=== PATIENT | female | born 1960 | race American Indian/Alaskan Native ===

== ENCOUNTER 2016-11-01 08:46 | Emergency (ER) | payer BC ==
[2016-11-01 08:46] VITALS: BMI 24.5
[2016-11-01 09:12] VITALS: TEMP 98.6; O2SAT 100
--- NOTE | 2016-11-01 09:30 | ED PDOC ---
Arrival/HPI - General Time Seen by Provider: 11/01/16 09:12 Historian: Patient - History of Present Illness Narrative History of Present Illness (Text): 11/01/16 09:23 56yo female with PMHx of hypertension, Diabetes, Anemia, present with 2days history of generalized weakness. states she has been yawning constantly. she reports that her FS was 78yesterday. In ED it was 128 this morning. +Nausea. Denies chest pain, SOB, abdominal pain, vomiting, diarrhea, dizziness, urinary symptoms, any other complaint at this time. Past Medical History - Provider Review Nursing Documentation Reviewed: Yes - Cardiac Hx Angina: Yes Hx Hypertension: Yes - Endocrine/Metabolic Hx Diabetes Mellitus Type 2: Yes (On Metformin, advised by Dr. Kelsey to stop ) - Hematological/Oncological Other/Comment: THALLASEMIA [facility]OR - Surgical History Hx Hysterectomy: Yes (2003) Hx Tonsillectomy: Yes (1993) - Anesthesia Hx Anesthesia: Yes Hx Anesthesia Reactions: No Hx Malignant Hyperthermia: No Family/Social History - Physician Review Nursing Documentation Reviewed: Yes Family/Social History: Unknown Family HX Smoking Status: Never Smoked Allergies/Home Meds Allergies/Adverse Reactions: Allergies tomato Allergy (Uncoded 11/01/16 09:19) RASH Home Medications: Home Meds Medication Instructions Recorded Confirmed Olmesartan/Amlodipin/Hcthiazid 1 tab PO DAILY 11/01/16 11/01/16 [Tribenzor 20-5-12.5 mg Tablet] Review of Systems - Physician Review All systems were reviewed & negative as marked: Yes - Review of Systems Constitutional: Fatigue Eyes: Normal ENT: Normal Respiratory: Normal Cardiovascular: Normal Gastrointestinal: Normal Genitourinary Female: Normal Musculoskeletal: Normal Skin: Normal Neurological: Normal Endocrine: Normal Hemo/Lymphatic: Normal Psychiatric: Normal Physical Exam Vital Signs Reviewed: Yes Vital Signs Temp Pulse Resp BP Pulse Ox 11/01/16 11:00 63 16 126/78 100 11/01/16 09:11 98.6 F 70 16 137/84 100 Temperature: Afebrile Blood Pressure: Normal Pulse: Regular Respiratory Rate: Normal Appearance: Positive for: Well-Appearing, Non-Toxic, Comfortable Pain Distress: None Mental Status: Positive for: Alert and Oriented X 3 Finger Stick Blood Glucose: 126 - Systems Exam Head: Present: Atraumatic, Normocephalic Pupils: Present: PERRL Extroacular Muscles: Present: EOMI Conjunctiva: Present: Normal Mouth: Present: Moist Mucous Membranes Neck: Present: Normal Range of Motion Respiratory/Chest: Present: Clear to Auscultation, Good Air Exchange. No: Respiratory Distress, Accessory Muscle Use Cardiovascular: Present: Regular Rate and Rhythm, Normal S1, S2. No: Murmurs Abdomen: Present: Normal Bowel Sounds. No: Tenderness, Distention, Peritoneal Signs, Rebound, Guarding, McBurney's Point Tender, Rovsing's Sign Present Back: Present: Normal Inspection Upper Extremity: Present: Normal Inspection. No: Cyanosis, Edema Lower Extremity: Present: Normal Inspection. No: Edema Neurological: Present: GCS=15, CN II-XII Intact, Speech Normal Skin: Present: Warm, Dry, Normal Color. No: Rashes Psychiatric: Present: Alert, Oriented x 3, Normal Insight, Normal Concentration Medical Decision Making ED Course and Treatment: 11/01/16 12:09 Pt presented for stated history. she was hemodynamically stable and comfortable in ED. Lab was reviewed and pt had hypokalemia which was repleted in ED. She have UTI and was treated with macrobid. She is currently not on hypoglycemics. She stopped taking it, on her PMD's request. All result was DW the pt. She was advised to f/u with her PMD. TRT ED for any new or worsening symptoms. - Lab Interpretations Lab Results: 11/01/16 09:37 11/01/16 09:37 Lab Results 11/01/16 10:50: Urine Color Yellow, Urine Appearance Clear, Urine pH 7.0, Ur Specific [place] 1.015, Urine Protein Negative, Urine Glucose (UA) Negative, Urine Ketones Negative, Urine Blood Moderate H, Urine Nitrate Negative, Urine Bilirubin Negative, Urine Urobilinogen 0.2, Ur Leukocyte Esterase Small H, Urine RBC 5 - 10, Urine WBC 1 - 3, Ur Epithelial Cells 4 - 5, Urine Bacteria Few 11/01/16 09:37: Iron 93, TIBC 243 L, % Saturation 38 11/01/16 09:37: Sodium 142, Potassium 3.1 L, Chloride 102, Carbon Dioxide 33, Anion Gap 10, BUN 11, Creatinine 0.8, Est GFR ( Amer) > 60, Est GFR (Non- Af Amer) > 60, Random Glucose 81, Calcium 9.3, Total Bilirubin 0.8, AST 24, ALT 41, Alkaline Phosphatase 41, Lactate Dehydrogenase 487, Total Creatine Kinase 85 , Troponin I < 0.01, Total Protein 7.7, Albumin 3.8, Globulin 3.9, Albumin/ Globulin Ratio 1.0 L 11/01/16 09:37: PT 11.0, INR 1.02, APTT 26.9 11/01/16 09:37: WBC 4.8, RBC 4.74, Hgb 11.8 L, Hct 36.4, MCV 76.8 L, MCH 24.9 L , MCHC 32.4, RDW 14.4, Plt Count 242, MPV 10.0, Gran % 56.8, Lymph % (Auto) 31.6 , [place] % (Auto) 9.1 H, Eos % (Auto) 1.9, Baso % (Auto) 0.6, Gran # 2.75, Lymph # 1.5, [place] # 0.4, Eos # 0.1, Baso # 0.03 - EKG Interpretation Interpreted by ED Physician: Yes (NSR; LAD @ 66bpm. No ST changes) - Medication Orders Current Medication Orders: Potassium Chloride (Potassium Chloride 20 Meq/100 Ml) 20 meq in 100 mls @ 50 mls/hr IVPB ONCE ONE Stop: 11/01/16 12:12 Last Admin: 11/01/16 12:00 Dose: 50 mls/hr Discontinued Medications Sodium Chloride (Sodium Chloride 0.9%) 1,000 mls @ 999 mls/hr IV .Q1H1M STA Stop: 11/01/16 11:03 Last Admin: 11/01/16 10:05 Dose: 999 mls/hr Magnesium Sulfate/Dextrose (Magnesium Sulfate 1 Gm/100 Ml D5w) 1 gm in 100 mls @ 100 mls/hr IVPB ONCE ONE Stop: 11/01/16 11:12 Last Admin: 11/01/16 10:47 Dose: 100 mls/hr Nitrofurantoin Macrocrystals (Macrobid) 100 mg PO ONCE STA Stop: 11/01/16 11:37 Last Admin: 11/01/16 11:59 Dose: 100 mg Disposition/Present on Arrival - Present on Arrival Any Indicators Present on Arrival: No History of DVT/PE: No History of Uncontrolled Diabetes: No Urinary Catheter: No History of Decub. Ulcer: No History Surgical Site Infection Following: None - Disposition Have Diagnosis and Disposition been Completed?: Yes Diagnosis: UTI (urinary tract infection), Hypokalemia Disposition: HOME/ ROUTINE Disposition Time: 11:40 Patient Plan: Discharge Patient Problems: Current Active Problems Problem Status Onset Hypokalemia Acute UTI (urinary tract infection) Acute Condition: STABLE Discharge Instructions (ExitCare): Urinary Tract Infection in Women (ED) Additional Instructions: Follow up with your Doctor Return to ED for any new or worsening symptoms Prescriptions: Nitrofurantoin Macrocrystals [Macrobid] 100 mg PO BID #14 cap Referrals: Trinh Kelsey MD [Primary Care Provider] - Follow up with primary
[2016-11-01 09:38] LABS: ADD MANUAL DIFF? NO
[2016-11-01 09:41] LABS: BASO # 0.03 K/mm3 (0.0-2.0); BASO % 0.6 % (0.0-3.0); EOS # 0.1 (0.0-0.7); EOS % 1.9 % (1.5-5.0); GRAN # 2.75 (1.4-6.5); GRAN % 56.8 % (50.0-68.0); HEMATOCRIT 36.4 % (36.0-48.0); LYMPH # 1.5 (1.2-3.4); LYMPH % 31.6 % (22.0-35.0); MEAN CELL VOLUME 76.8 fL (80.0-105.0); MEAN CORPUSCULAR HEMOGLOBIN 24.9 pg (25.0-35.0); MEAN CORPUSCULAR HGB CONC 32.4 g/dl (31.0-37.0); MONO # 0.4 (0.1-0.6); MONO % 9.1 % (1.0-6.0); PLATELET COUNT 242 10^3/uL (120.0-450.0); RED CELL DISTRIBUTION WIDTH 14.4 % (11.5-14.5); WHITE BLOOD COUNT 4.8 10^3/ul (4.5-11.0)
[2016-11-01 09:50] LABS: ALKALINE PHOSPHATASE 41 U/L (38-133); ALT/SGPT 41 U/L (7-56); AST/SGOT 24 U/L (15-39); BILIRUBIN,TOTAL 0.8 mg/dL (0.2-1.3); BLOOD UREA NITROGEN 11 mg/dL (7-21); CALCIUM 9.3 mg/dL (8.4-10.5); CARBON DIOXIDE 33 mmol/L (21-33); CHLORIDE 102 mmol/L (98-107); GFR AFRICAN-AMERICAN > 60; GLUCOSE,RANDOM 81 mg/dL (70-110); INR 1.02 (0.93-1.08); PARTIAL THROMBOPLASTIN TIME 26.9 Seconds (23.7-30.8); POTASSIUM 3.1 mmol/L (3.6-5.0); SODIUM 142 mmol/L (132-148); TOTAL PROTEIN 7.7 g/dL (5.8-8.3)
[2016-11-01 10:01] LABS: TROPONIN I < 0.01 ng/mL
[2016-11-01 10:03] LABS: IRON 93 ug/dL (45-180)
[2016-11-01] MEDS ORDERED: Sodium Chloride 0.9% 1,000 ML IV STA (10:03)
[2016-11-01] MEDS ORDERED: Magnesium Sulfate 1 gm in D5W 1 GM/100 ML BAG IVPB ONE (10:13)
[2016-11-01 11:11] LABS: URINE BILIRUBIN NEGATIVE (NEGATIVE); URINE BLOOD MODERATE (NEGATIVE); URINE GLUCOSE (UA) NEGATIVE (NEGATIVE); URINE KETONE NEGATIVE (NEGATIVE); URINE LEUKOCYTE ESTERASE SMALL Leu/uL (NEGATIVE); URINE PROTEIN NEGATIVE mg/dL (<30 mg/dL); URINE UROBILINOGEN 0.2 E.U./dL (<1 E.U./dL)
[2016-11-01 11:17] LABS: URINE APPEARANCE CLEAR (CLEAR); URINE COLOR YELLOW (YELLOW)
[2016-11-01 11:22] LABS: URINE BACTERIA FEW (NEG)
[2016-11-01 12:38] VITALS: BP 119/75; PULSE 68; RESP 18
--- NOTE | 2016-11-01 22:51 | CARD ---
APPROVED REPORT EKG Measurement Heart [id number] <Conclusion> Normal sinus rhythm Left axis deviation Nonspecific ST abnormality Abnormal ECG
== END 2016-11-01 15:01 | disposition home or self-care (01) ==
LOC: ED 08:46
DX: E87.6 Hypokalemia (principal); N39.0 Urinary tract infection, site not specified; I10 Essential (primary) hypertension; D64.9 Anemia, unspecified; E11.9 Type 2 diabetes mellitus without complications; Z79.84 Long term (current) use of oral hypoglycemic drugs
CPT/HCPCS: 80053; 81001; 82550; 82948; 83540; 83550; 83615; 84484; 85025; 85610; 85730; 87086; 93005; 96374; 99285; J3475; J3480; J7040